=== PATIENT | female | born 1965 | race Caucasian/White ===

== ENCOUNTER 2023-06-03 15:00 | Outpatient (RCR) | payer BC, SELFPAY | END 2023-09-12 08:00 | disposition home or self-care (01) | LOC: PT 15:00 | PROVIDERS: PCP Family Medicine | DX: S42.201D Unspecified fracture of upper end of right humerus, subsequent encounter for fracture with routine healing (principal) | CPT/HCPCS: 97110; 97140; 97161 ==

== ENCOUNTER 2023-09-13 09:59 | Outpatient (RCR) | payer BC, SELFPAY | END 2023-09-29 15:47 | disposition home or self-care (01) | LOC: PT 09:59 | PROVIDERS: PCP Family Medicine; Visit Provider Orthopaedic Surgery | DX: S42.201D Unspecified fracture of upper end of right humerus, subsequent encounter for fracture with routine healing (principal); M79.601 Pain in right arm; M25.511 Pain in right shoulder | CPT/HCPCS: 97110 ==